=== PATIENT | male | born 1980 | race Caucasian/White ===

== ENCOUNTER 2019-03-27 20:46 | Emergency (ER) ==
[2019-03-27 20:53] VITALS: BP 137/97; TEMP 98.5; BMI 26.4
[2019-03-27] MEDS ORDERED: LIDOCAINE 1%-EPI 1:100,000 20 ML MDV INJ STA (20:58)
--- NOTE | 2019-03-27 21:15 | ED.PDOC ---
General ED Provider: Dr. ALISON WOODALL MD Chief Complaint: Laceration Stated Complaint: cut my arm Time Seen by Physician: 21:00 Mode of Arrival: Walk-In Information Source: Patient Exam Limitations: No limitations Nursing and Triage Documentation Reviewed and Agree: Yes Does patient meet sepsis criteria?: No If yes, has appropriate treatment been initiated?: Yes System Inflammatory Response Syndrome: Not Applicable Sepsis Protocol: For patient's 13 years and over: Temp is 96.8 and below OR 101 and greater Pulse >90 BPM Resp >20/minute Acutely Altered Mental Status Are patient's symptoms suggestive of a new infection, such as: -Pneumonia -Skin, Soft Tissue -Endocarditis -UTI -Bone, Joint Infection -Implantable Device -Acute Abdominal Infection -Wound Infection -Meningitis -Blood Stream Catheter Infection -Unknown Review of Systems - Review Of Systems Constitutional: Reports: No symptoms Eyes: Reports: No symptoms Ears, Nose, Mouth, Throat: Reports: No symptoms Respiratory: Reports: No symptoms Cardiac: Reports: No symptoms GI: Reports: No symptoms : Reports: No symptoms Musculoskeletal: Reports: No symptoms Skin: Reports: No symptoms Neurological: Reports: No symptoms Endocrine: Reports: No symptoms Hematologic/Lymphatic: Reports: No symptoms All Other Systems: Reviewed and Negative Past Medical History - Past Medical History Previously Healthy: Yes Endocrine: Reports: None Cardiovascular: Reports: None Respiratory: Reports: None Hematological: Reports: None Gastrointestinal: Reports: None Genitourinary: Reports: None Neuro/Psych: Reports: None Musculoskeletal: Reports: None Cancer: Reports: None - Surgical History General Surgical History: Reports: None - Family History Family History: Reports: None - Social History Smoking Status: Current every day smoker, Heavy tobacco smoker Hx Substance Use: No Alcohol Screening: Occasionally - Immunizations Tetanus Shot up to Date: No Physical Exam - Physical Exam Appearance: Well-appearing, No pain distress, Well-nourished Eyes: BJ, EOMI, Conjunctiva clear ENT: Ears normal, Nose normal, Oropharynx normal Respiratory: Airway patent, Breath sounds clear, Breath sounds equal, Respirations nonlabored Cardiovascular: RRR, Pulses normal, No rub, No murmur GI/: Soft, Nontender, No masses, Bowel sounds normal, No Organomegaly Musculoskeletal: Normal strength, ROM intact, No edema, No calf tenderness Skin: Warm (6cn laceration right elbow ), Dry, Normal color Neurological: Sensation intact, Motor intact, Reflexes intact, Cranial nerves intact, Alert, Oriented Psychiatric: Affect appropriate, Mood appropriate Procedures - Laceration/Wound Repair laceration Wound Description: Irregular Wound Length (cm): 6cm Wound Width: 2 Wound Depth: dermal Wound Explored: Contaminated Wound Irrigated: Yes Wound Prep: Hibiclens Wound Margins: Other Wound Repaired With: Sutures Suture Size and Type: 4-0 nylon Number of Sutures: 10 Layer Closure?: No Critical Care Note - Critical Care Note Total Time (mins): 0 Course - Course Orders, Labs, Meds: Orders Category Date Time Status Lidocaine 1%/Epinephrine [Lidocaine 1%-Epi 1:100,000 20 MEDS 03/27/19 20:58 Discontinued ml Mdv] 1 ml INJ ONCE STA Medications Discontinued Medications Generic Name Dose Route Start Last Admin Trade Name Freq PRN Reason Stop Dose Admin Lidocaine/Epinephrine 1 ml 03/27/19 20:58 03/27/19 21:01 Lidocaine 1%-Epi 1:100,000 20 Ml Mdv INJ 03/27/19 20:59 1 ml ONCE STA Administration Vital Signs: Temp Pulse Resp BP Pulse Ox 03/27/19 20:47 98.5 F 97 H 20 137/97 H 97 Departure - Departure Time of Disposition: 21:30 Disposition: HOME SELF-CARE Discharge Problem: Laceration of upper arm Qualifiers: Encounter type: initial encounter Laterality: right Qualified Code(s): S41.111A - Laceration without foreign body of right upper arm, initial encounter Instructions: Laceration (ED) Condition: Good Pt referred to PMD for follow-up: Yes IPMP verified?: No Prescriptions: Cephalexin [Keflex] 500 mg PO Q12HR 5 Days #10 capsule Allergies/Adverse Reactions: Allergies No Known Allergies Allergy (Verified 03/27/19 20:53) Home Medications: Ambulatory Orders Acetaminophen [Tylenol] 650 mg PO Q4H PRN 10/22/18 Cephalexin [Keflex] 500 mg PO Q12HR 5 Days #10 capsule 03/27/19 Transfer Form Completed: No Disposition Discussed With: Patient, Family
== END 2019-03-27 21:15 | disposition home or self-care (01) ==
LOC: ED 20:46
DX: S41.111A Laceration without foreign body of right upper arm, initial encounter (principal); F17.210 Nicotine dependence, cigarettes, uncomplicated; W45.8XXA Other foreign body or object entering through skin, initial encounter
CPT/HCPCS: 96372; 99283